=== PATIENT | male | born 1990 | race Two or more races ===

== ENCOUNTER 2020-11-03 13:53 | Inpatient (IN) | payer OTHER ==
[~2020-11-03] VITALS: Ht 182.9 cm; Wt 113.4 kg
[~2020-11-03 13:53] MED LIST: DOLOGEN CAPLET1 EACH PO; KETO10TA2 PO; ORPH100T PO; ZANTAC300 MG PO; ZOFRAN4 MG PO; [UNRECOGNIZED DRUG - OTHER]
--- NOTE | 2020-11-03 14:08 | NUR ---
SE LLAMA PACIENTE EN CUATRO OCACIONES EN SHEY DE ESPERA. EL MISMO NO RESPONDE.
--- NOTE | 2020-11-03 14:11 | NUR ---
SE RECIBE MASCULINO DE 30 ANOS,ALERTA,ORIENTADO EN CHARMAINE CESILIA ESFERAS, AMBULANDO SIN DIFICULTAD. PACIENTE REFIERE DOLOR ABDOMINAL. HACE UN ANO PADECIO DE DIVERTICULOS Y PRESENTA MISMOS SINTOMAS. SINTOMAS COMENZARON EL 11/02/2020. SE UBICA PACIENTE EN AREA DE OBSERVACION PARA EVALUACION MEDICA. [facility]> [email or web address] DOWNING
--- NOTE | 2020-11-03 16:53 | NUR ---
SE RECIBE PACIENTE ALERTA Y ORIENTADO EN TIEMPO LUGAR Y PERSONA. RN FOLH ORIENTA A PACIENTE SOBRE TRATAMIENTO ORDENADO, EL MSIMO VERBALIZA ENTENDER. RN ADMINISTRA MEDICAMENTOS ORDENADOS Y COLECTA MUESTRAS ORDENADAS. SE MANTIENE NE OBSERVACION POR CAMBIOS EN ALBRIGHT CONDICION.
== END 2020-11-07 14:54 | disposition home or self-care (01) | DRG 392 ==
LOC: ER 13:53 → MEDI 19:50
PROVIDERS: ADMIT Internal Medicine; ATTEND Internal Medicine
PROC: BW21YZZ Computerized Tomography (CT Scan) of Abdomen and Pelvis using Other Contrast (ICD-10-PCS; principal; 2020-11-03)
DX: K57.20 Diverticulitis of large intestine with perforation and abscess without bleeding (principal); Z20.822 Contact with and (suspected) exposure to COVID-19